=== PATIENT | female | born 1995 | race African-American/Black ===

== ENCOUNTER 2023-06-27 21:21 | Emergency (ER) | payer OTHER ==
[2023-06-27 21:32] VITALS: BP 113/64; PULSE 77; RESP 18; TEMP 98.2; BMI 31.9
[2023-06-27 22:58] LABS: BASO % 0.5 % (0-2.0); EOS % 1.1 % (0-4.5); HEMATOCRIT 38.4 % (32.4-45.2); LYMPH % 26.3 % (8-40); MCH 29.8 pg (25.7-33.7); MCHC 33.7 g/dl (32.0-36.0); MEAN CELL VOLUME 88.2 fl (80-96); MEAN PLT VOLUME 7.2 fl (7.5-11.1); MONO % 8.3 % (3.8-10.2); NEUT % 63.8 % (42.8-82.8); PLATELET COUNT 371 10^3/uL (134-434); RBC 4.35 M/mm3 (3.60-5.2); RDW 12.6 % (11.6-15.6); WHITE BLOOD COUNT 11.9 K/mm3 (4.0-10.0)
[2023-06-27 23:21] LABS: POTASSIUM 3.9 mmol/L (3.5-5.1)
[2023-06-27 23:23] LABS: CALCIUM 8.5 mg/dL (8.5-10.1)
[2023-06-27 23:24] LABS: ALBUMIN 3.3 g/dl (3.4-5.0); BLOOD UREA NITROGEN 10.9 mg/dL (7-18)
[2023-06-27 23:27] LABS: CREATININE 0.6 mg/dL (0.55-1.3)
[2023-06-27 23:29] LABS: BILIRUBIN,TOTAL 0.6 mg/dL (0.2-1); TOT PROT 7.2 g/dl (6.4-8.2)
== END 2023-06-28 01:27 | disposition home or self-care (01) ==
LOC: JER 21:21
DX: O20.8 Other hemorrhage in early pregnancy (principal); O26.891 Other specified pregnancy related conditions, first trimester; R10.9 Unspecified abdominal pain; Z3A.01 Less than 8 weeks gestation of pregnancy
CPT/HCPCS: 36415; 76817-TC; 80053; 84702; 84703; 85025; 86850; 86900; 86901; 87086; 99284-25

== ENCOUNTER 2024-02-11 23:30 | Inpatient (IN) | payer OTHER ==
[2024-02-12] MEDS: ELECTROLYTE-148 SOLN 1,000 ML IV SCH (00:20)
[2024-02-12 00:51] LABS: BASO % 0.1 % (0-2.0); HEMATOCRIT 30.6 % (32.4-45.2); HEMOGLOBIN 10.1 GM/dL (10.7-15.3); LYMPH % 22.2 % (8-40); MCH 27.8 pg (25.7-33.7); MEAN CELL VOLUME 84.2 fl (80-96); MONO % 9.7 % (3.8-10.2); PLATELET COUNT 334 10^3/uL (134-434); RBC 3.63 M/mm3 (3.60-5.2); WHITE BLOOD COUNT 12.1 K/mm3 (4.0-10.0)
[2024-02-12 01:03] LABS: INR 0.88 (0.83-1.09); PROTHROMBIN TIME (PATIENT) 10.2 SEC (9.7-13.0)
[2024-02-12 01:05] VITALS: BMI 36.3
[2024-02-12 01:06] LABS: ACTIVATED PTT 27.8 SECONDS (25.2-36.5)
[2024-02-12 01:07] LABS: CALCIUM 8.5 mg/dL (8.5-10.1)
[2024-02-12 01:08] LABS: BLOOD UREA NITROGEN 8.9 mg/dL (7-18)
[2024-02-12 01:11] LABS: CREATININE 0.7 mg/dL (0.55-1.3)
[2024-02-12] MEDS ORDERED: FENTANYL/BUPIVACAINE/NS/PF - PCEA - 50 ML DISP.SYRIN EP ONE (01:23)
[2024-02-12] MEDS ORDERED: BUPIVACAINE HCL/PF 0.25% (2.5MG/ML) 10 ML VIAL ONE (01:24)
[2024-02-12] MEDS: FENTANYL/BUPIVACAINE/NS/PF - PCEA - 50 ML DISP.SYRIN EP SCH ×2 (01:39→06:57)
[2024-02-12] MEDS ORDERED: OXYTOCIN 20 UNITS in 0.9% NS 20 UNIT/1,000 ML INFUS.BAG IV ONE (01:59)
[2024-02-12] MEDS ORDERED: NALOXONE HCL 0.4 MG/ML VIAL IVPUSH PRN (01:59)
[2024-02-12] MEDS ORDERED: LIDOCAINE HCL 1% PRESERVATIVE FREE - 30ML VIAL ONE (01:59)
[2024-02-12] MEDS: OXYTOCIN 20 UNITS in 0.9% NS 20 UNIT/1,000 ML INFUS.BAG IV SCH (02:35)
[2024-02-12] MEDS ORDERED: BENZOCAINE 20% 57 GM BOTTLE TP PRN (02:39)
[2024-02-12] MEDS ORDERED: BISACODYL 10 MG SUPP.RECT RC PRN (02:39)
[2024-02-12] MEDS ORDERED: oxyCODONE HCL 5 MG TABLET PO PRN (02:39)
[2024-02-12] MEDS ORDERED: METHYLERGONOVINE MALEATE 0.2 MG/1 ML AMP IM PRN (02:39)
[2024-02-12] MEDS ORDERED: WITCH HAZEL 50% (TUCKS) 40 PAD/JAR PAD TP PRN (02:39)
[2024-02-12] MEDS ORDERED: IBUPROFEN 600 MG TABLET (FP) PO PRN (02:39)
[2024-02-12] MEDS ORDERED: ACETAMINOPHEN 325 MG TABLET (FP) PO PRN (02:39)
[2024-02-12] MEDS ORDERED: BENZOCAINE 28 GM HEMORRHOIDAL OINTMENT TP PRN (02:39)
[2024-02-12 03:24] LABS: CORD HCO3 22.2 mmHg (20-29); CORD PCO2 63.3 mmHg (30-78); CORD pH 7.162 (7.14-7.44)
[2024-02-12 03:29] LABS: CORD BASE EXCESS -8.1 mmol/L (0-2); CORD HCO3 17.8 mmHg (20-29); CORD PCO2 38.3 mmHg (30-78); CORD pH 7.285 (7.14-7.44)
[2024-02-12] MEDS: PRENATAL VITAMINS W/ FOLIC ACID TABLET (FP) PO SCH (09:49)
[2024-02-13 06:56] LABS: BASO % 0.2 % (0-2.0); EOS % 1.2 % (0-4.5); HEMOGLOBIN 9.1 GM/dL (10.7-15.3); LYMPH % 28.9 % (8-40); MCH 28.8 pg (25.7-33.7); MCHC 33.7 g/dl (32.0-36.0); MEAN CELL VOLUME 85.6 fl (80-96); MEAN PLT VOLUME 7.6 fl (7.5-11.1); MONO % 7.9 % (3.8-10.2); NEUT % 61.8 % (42.8-82.8); PLATELET COUNT 273 10^3/uL (134-434); RBC 3.15 M/mm3 (3.60-5.2); RDW 14.2 % (11.6-15.6); WHITE BLOOD COUNT 10.9 K/mm3 (4.0-10.0)
[2024-02-13] MEDS: FERROUS SO4 325 MG TABLET (FP) PO SCH (15:37)
[2024-02-13] MEDS ORDERED: SENNOSIDES/DOCUSATE COMBO (SENNA PLUS) TABLET (UD) PO PRN (22:00)
[2024-02-14 09:13] VITALS: BP 112/71; PULSE 76; RESP 14; TEMP 98.5
== END 2024-02-14 13:00 | disposition home or self-care (01) | DRG 560 ==
LOC: JLDR 23:30 → J3W 02-12 05:05
PROVIDERS: ADMIT Obstetrics & Gynecology; ATTEND Obstetrics & Gynecology
PROC: 10E0XZZ Delivery of Products of Conception, External Approach (ICD-10-PCS; principal; 2024-02-12)
DX: O99.02 Anemia complicating childbirth (principal); O99.213 Obesity complicating pregnancy, third trimester; Z3A.39 39 weeks gestation of pregnancy; Z37.0 Single live birth
CPT/HCPCS: 36415; 36600; 59409; 80048; 82803; 85025; 85610; 85730; 86780; 86850; 86900; 86901